=== PATIENT | female | born 1990 | race Two or more races ===

== ENCOUNTER 2018-06-05 04:58 | Emergency (ER) | payer OTHER ==
[2018-06-05 07:48] VITALS: BP 113/65; PULSE 72; RESP 12; TEMP 97.1; O2SAT 96
== END 2018-06-05 09:30 | disposition home or self-care (01) | DRG 563 ==
LOC: ED 04:58
DX: S46.912A Strain of unspecified muscle, fascia and tendon at shoulder and upper arm level, left arm, initial encounter (principal)
CPT/HCPCS: 73221; 99282; 99283

== ENCOUNTER 2018-08-11 05:39 | Emergency (ER) | payer OTHER, MEDICARE ==
[2018-08-11 05:45] VITALS: BP 120/83; PULSE 78; RESP 18; TEMP 97.4; O2SAT 100
== END 2018-08-11 07:22 | disposition home or self-care (01) | DRG 552 ==
LOC: ED 05:39
DX: M54.2 Cervicalgia (principal)
CPT/HCPCS: 72125; 99282; 99283